=== PATIENT | female | born 1990 | race Caucasian/White ===

== ENCOUNTER → 2017-02-20 | Outpatient (CLI) | payer BC ==
--- NOTE | 2017-02-20 16:34 | DI ---
OBSTETRICAL ULTRASOUND, 02/20/2017 2:40 PM: Clinical History: Amenorrhea. Verify dates. Previous Exam: None at this facility for this . LMP: 12/13/2016. There is a single live IUP currently in unstable position. Amnionic fluid content is normal. The plac enta is indeterminant in location. heart rate is 172 beats/minute and regular. Both ovaries are normal. The yolk sac is visualized. CRL measurement is 24 mm. This measurement corresponds to an EGA value of 9 weeks 1 day. The US EDC is 09/24/2017 EDC by LMP is 09/19/2017. Readin. Single live fetus with unstable presentation and normal amniotic fluid content. 2. The composite EGA is 9 weeks 1 day with an ultrasound EDC of 09/24/2017. Based on LMP of 7, the EDC would be 09/19/2017.
== END ==
LOC: US 14:31
PROVIDERS: ATTEND Family Medicine
DX: Z36 Encounter for antenatal screening of mother (principal); Z3A.09 9 weeks gestation of pregnancy
CPT/HCPCS: 76801

== ENCOUNTER → 2017-02-28 | Outpatient (CLI) | payer BC ==
[2017-02-28 09:34] LABS: BASOPHILS # (AUTO) 0.04 10*3/UL; BASOPHILS % (AUTO) 0.4 % (0-1); EOSINOPHILS # (AUTO) 0.09 10*3/UL; HEMATOCRIT 40.4 % (37.0-47.0); HEMOGLOBIN 14.1 g/dL (12.0-16.0); LYMPHOCYTES # (AUTO) 2.63 10*3/uL; MEAN CORPUSCULAR HEMOGLOBIN 28.4 PG (27-31); MEAN CORPUSCULAR HGB CONC 34.9 g/dL (33-37); MEAN CORPUSCULAR VOLUME 81.5 FL (81-99); MEAN PLATELET VOLUME 9.4 FL (7.4-12.2); MONOCYTES % (AUTO) 5.3 % (5-15); NEUTROPHILS # (AUTO) 6.09 10*3/UL; NEUTROPHILS % (AUTO) 64.8 % (50-80); RED BLOOD COUNT 4.96 10^6/uL (4.20-5.40)
[2017-02-28 09:41] LABS: PLATELET MORPHOLOGY COMMENT NORMAL MORPHOLOGY (NORM); RBC MORPHOLOGY COMMENT NORMAL MORPHOLOGY (NORM); WBC MORPHOLOGY COMMENT NORMAL MORPHOLOGY (NORM)
[2017-02-28 09:50] LABS: HEMOGLOBIN A1C 10.06 % (4.2-6.0)
[2017-02-28 10:02] LABS: CHOL/HDL RATIO 2.81 RATIO (0-4.0); LDL CHOLESTEROL,CALCULATED 106.6 mg/dL
[2017-02-28 10:34] LABS: HIV ANTIBODY NEGATIVE (N); HIV-1 P24 ANTIGEN NEGATIVE (N)
[2017-03-01 16:48] LABS: HEP B SURFACE AG Negative (Negative)
== END ==
LOC: LAB 09:17
PROVIDERS: ATTEND Family Medicine
DX: O24.011 Pre-existing type 1 diabetes mellitus, in pregnancy, first trimester (principal); Z36 Encounter for antenatal screening of mother; Z3A.10 10 weeks gestation of pregnancy
CPT/HCPCS: 36415; 80061; 80081; 83036; 86900; 86901; 87077; 87088; 87186

== ENCOUNTER → 2017-05-21 | Outpatient (CLI) | payer BC ==
[2017-05-21 10:12] LABS: BLOOD UREA NITROGEN 12 mg/dL (7-22); CALCIUM 8.9 mg/dL (8.7-10.7); EST GLOMERULAR FILTRATION > 60 (>60 ml/min/1.73m(2))
== END ==
LOC: LAB 09:42
PROVIDERS: ATTEND Family Medicine
DX: Z36 Encounter for antenatal screening of mother (principal); Z3A.22 22 weeks gestation of pregnancy
CPT/HCPCS: 36415; 80048; 84443

== ENCOUNTER → 2017-05-31 | Outpatient (CLI) | payer BC | LOC: US 15:01 | PROVIDERS: ATTEND Family Medicine | DX: Z53.9 Procedure and treatment not carried out, unspecified reason (principal); O24.019 Pre-existing type 1 diabetes mellitus, in pregnancy, unspecified trimester | CPT/HCPCS: 76815 ==

== ENCOUNTER 2017-09-09 19:04 | Inpatient (IN) ==
[2017-09-09] MEDS ORDERED: Zolpidem Tab 5 MG TAB PO PRN (19:49)
[2017-09-09] MEDS ORDERED: Naloxone Inj 0.01 MG in Normal Saline Flush 1 ML IVP PRN (20:00)
[2017-09-09] MEDS ORDERED: Lidocaine 1% 10 MG/ML - 20 ML VIAL SUBCUT PRN (20:00)
[2017-09-09] MEDS ORDERED: NORMAL SALINE 10 ML SYRINGE FLUSH IVP PRN (20:00)
[2017-09-09] MEDS ORDERED: Phenylephrine Inj 50 MCG in Normal Saline Flush 0.5 ML IVP PRN (20:00)
[2017-09-09] MEDS ORDERED: Carboprost Inj 250 MCG/ML AMP IM PRN (20:00)
[2017-09-09] MEDS ORDERED: BUTORPHANOL TARTRATE 2 MG/1 ML VIAL IVP PRN (20:00)
[2017-09-09] MEDS ORDERED: TERBUTALINE SULFATE 1 MG/1 ML SDV SUBCUT PRN (20:00)
[2017-09-09] MEDS ORDERED: diphenhydrAMINE 50 MG/1 ML VIAL IVP PRN (20:00)
[2017-09-09] MEDS ORDERED: Famotidine Inj 20 MG in Normal Saline Flush 10 ML IVP PRN ×4 (20:00)
[2017-09-09] MEDS ORDERED: Metoclopramide Inj 10 MG/2 ML VIAL IV PRN (20:00)
[2017-09-09] MEDS ORDERED: ONDANSETRON 4 MG/2 ML VIAL IVP PRN (20:00)
[2017-09-09] MEDS ORDERED: Oxytocin 20 Units + LR 20 UNIT/1,000 ML BAG IV SCH (20:00)
[2017-09-09] MEDS ORDERED: fentaNYL Inj 100 MCG/2 ML VIAL IV PRN (20:00)
[2017-09-09] MEDS ORDERED: CITRIC ACID/SODIUM CITRATE 30 ML CUP PO PRN (20:00)
[2017-09-09] MEDS ORDERED: NALOXONE 0.4 MG/1 ML VIAL IVP PRN (20:00)
[2017-09-09] MEDS ORDERED: Nalbuphine Inj 20 MG/ML Ampule IVP PRN (20:00)
[2017-09-09] MEDS ORDERED: MISOPROSTOL 200 MCG TABLET RECTAL PRN (20:00)
[2017-09-09] MEDS ORDERED: METHYLERGONOVINE MALEATE 0.2 MG/1 ML VIAL IM PRN (20:00)
[2017-09-09] MEDS ORDERED: ePHEDrine Inj 5 MG in Normal Saline Flush 1 ML IVP PRN (20:00)
[2017-09-09] MEDS ORDERED: CALCIUM CARBONATE 500 MG (TUMS) CHEWABLE TABLET PO PRN (20:00)
[2017-09-09] MEDS ORDERED: LIDOCAINE HCL 2 % 10 ML JELLY URO-JECT TOPICAL PRN (20:00)
[2017-09-09] MEDS ORDERED: OXYTOCIN 10 UNIT/1 ML IM PRN (20:00)
[2017-09-09] MEDS ORDERED: CefOXitin Inj 2 GM in Sodium Chloride 0.9% 100 ML IV PRN (20:00)
[2017-09-09] MEDS ORDERED: LIDOCAINE W/ SODIUM BICARB 0.5 ML SYR SUBD PRN (20:00)
[2017-09-09] MEDS ORDERED: Lactated Ringers 1,000 ML PRIMARY IV ONE (20:07)
[2017-09-09 20:22] LABS: Hematocrit [HCT] 31.9 % (37.0-47.0); Hemoglobin [HGB] 10.9 g/dL (12.0-16.0); MEAN CORPUSCULAR HEMOGLOBIN 27.2 PG (27-31); MEAN CORPUSCULAR HGB CONC 34.2 g/dL (33-37); MEAN CORPUSCULAR VOLUME 79.6 FL (81-99); MEAN PLATELET VOLUME 11.8 FL (7.4-12.2); RED BLOOD COUNT 4.01 10^6/uL (4.20-5.40)
[2017-09-09] MEDS: Lactated Ringers-OB Dept 1,000 ML PRIMARY IV SCH (20:50)
[2017-09-09] MEDS ORDERED: Misoprostol Tab 100 MCG TAB VAGINAL PRN (21:00)
[2017-09-09] MEDS ORDERED: Insulin Regular Inj 100 UNIT in Sodium Chloride 0.9% 99 ML IV SCH (21:15)
[2017-09-09] MEDS ORDERED: Sodium Chloride 0.9% 100 ML IV ONE (21:26)
[2017-09-09] MEDS: D5-LR 1,000 ML PRIMARY IV SCH (22:15)
[2017-09-09] MEDS: DEXTROSE 50%-WATER SYRINGE 50 ML SYRINGE IVP ONE (23:11)
[2017-09-10] MEDS: DEXTROSE 50%-WATER SYRINGE 50 ML SYRINGE IVP ONE (00:58)
[2017-09-10] MEDS ORDERED: DEXTROSE 31 GM GEL PO PRN ×2 (08:00→19:28)
[2017-09-10] MEDS ORDERED: DEXTROSE 50%-WATER SYRINGE 50 ML SYRINGE IVP PRN ×2 (08:00→19:28)
[2017-09-10] MEDS ORDERED: Glucagon Inj Vial 1 MG/ML VIAL IM PRN ×2 (08:00→19:28)
--- NOTE | 2017-09-10 09:14 | OB.PROGRES ---
Date and Time of Service: 09/10/17 @ 0845 Interval History: Ms. Vegas is a 26 yo G1 at 38 weeks today, who has a 4 year history of type 1 DM. Her A1c with her initial labs was >10. She was referred to [facility], was started on an insulin pump and her sugars have normalized nicely. Her last A1c 1 mo ago was 7. She has been doing testing twice a week since 32 weeks. Her last u/s on 08/31, showed an EFW of 7#. I discussed the pt's case with Dr. Steve Pradhan at [facility] in [place] 2 weeks ago. He thought it was reasonable to not do an amniocentesis in this case since [place] FLM also do not have anything to do with the still-present risk of stillbirth. He thought it reasonable to induce the pt at 38 weeks gestation. The pt presented last noc for cervical ripening and received 1 dose of cytotec. Her cervix was 2/80/-2 this morning at 0500. She started leaking clear fluid at 0600 this morning. She does have some spotting. Her glucoses have been very well controlled on D5LR as well as regular insulin per drip. Her pump and CGM were stopped last noc at 2200. Objective - Cervical Exam Cervical Exam: 5/80/-2 [place]: every 2-3 minutes, palpating hard Heart Rate: 140 baseline, one early deceleration currently on the monitor. Baby has had some periods of decreased variability, but no decels outside of the 1 early. Heart Rate Interpretation Category: Category II - Labs CBC and BMP: 09/09/17 20:21 - Vital Signs Last Taken Vital Signs: Vital Signs - Last Taken Temperature 98 F 09/10/17 05:32 Pulse Rate 53 L 09/10/17 05:32 Respiratory Rate 18 09/10/17 05:32 Blood Pressure 134/71 09/10/17 05:32 Pulse Ox 98 09/10/17 07:00 Assessment and Plan - Patient Problems (1) Type 1 diabetes mellitus affecting in third trimester, antepartum Current Visit: No Status: Acute Code(s): O24.013 - Pre-existing type 1 diabetes mellitus, in , third trimester - Assessment / Plan Additional Assessment/Plan Details: -GBS positive, has received 3 doses of PCN to this point. -pt currently laboring well on her own with the just 1 dose of cytotec. -will get her an epidural when she wishes. -if her labor stalls out, will need to place an IUPC. -expectant management.
[2017-09-10] MEDS: Lactated Ringers-OB Dept 1,000 ML PRIMARY IV SCH ×3 (09:17→15:53)
[2017-09-10] MEDS ORDERED: LIDOCAINE MPF 2% - 5 ML (20 MG/1 ML) ONE ×2 (09:36→16:41)
[2017-09-10] MEDS ORDERED: Fent/Bupiv 2mcg/0.0625% Epid 250 ML ONE (09:36)
[2017-09-10] MEDS ORDERED: NALOXONE 0.4 MG/1 ML VIAL IVP PRN (10:46)
[2017-09-10] MEDS ORDERED: Naloxone Inj 0.01 MG in Normal Saline Flush 1 ML IVP PRN (10:46)
[2017-09-10] MEDS ORDERED: BUTORPHANOL TARTRATE 2 MG/1 ML VIAL IVP PRN (10:46)
[2017-09-10] MEDS ORDERED: Phenylephrine Inj 50 MCG in Normal Saline Flush 0.5 ML IVP PRN (10:46)
[2017-09-10] MEDS ORDERED: diphenhydrAMINE 50 MG/1 ML VIAL IVP PRN (10:46)
[2017-09-10] MEDS ORDERED: ePHEDrine Inj 5 MG in Normal Saline Flush 1 ML IVP PRN (10:46)
[2017-09-10] MEDS ORDERED: fentaNYL 2 MCG/BUPIVACAINE 0.0625%/NS 0.9% 250 ML BAG EPIDURAL ONE (10:46)
[2017-09-10] MEDS ORDERED: Nalbuphine Inj 20 MG/ML Ampule IVP PRN ×2 (10:46→19:19)
--- NOTE | 2017-09-10 10:48 | CRNA.PROGR ---
Anesthesia Time - - Start date: 09/10/17 End date: 09/10/17 - Procedure/Recovery Time Anesthesia : Time In: 10:17 Anesthesia : Time Out: 16:30 Anesthesia : Total Time: 373 - Total Anesthesia Time Total Anesthesia Time (minutes): 373 - Other Weight: 116.573 kg Height: 5 ft 8 in Body Mass Index (BMI): 39.0 Physical Status: P3 (, IDDM, Obesity) Anesthesia Type: Epidural Obstetrics: Planned vaginal delivery w/ neuraxial labor anesthesia/analog
--- NOTE | 2017-09-10 10:57 | CRNA.PROCE ---
Central Neuraxis Block [facility] - - Safety Measures: Site Verified - - Type of Block: Epidural (For Labor, requested by patient. E-Natals reviewed.) Reason for Block: Analgesia Moniters Used During Block: SPO2, NIBP Positioning: Sitting Skin Prep Used: Betadine (Times 3) Draped: Yes Skin Infiltration - Enter Amount Used in Comment Field: 1% Xylocaine (mL): Yes ( 1.5) Spinal Needle Used: 18 Hustead 80 mm (After epidural space located. Dura punctured times 1 with 25 gauge spinal needle through epidural needle intentionally.) Local Anesthetic - Enter Amount Used in Comment Field: 1.5 % Xylocaine with Epinephrine 1:200,000 (mL): Yes (3.5 ml as test dose.) Number of Centimeters Catheter Threaded: 3.5 Bioclusive Dressing Applied: Yes (Skin prep under all adhesive.) - - Additional Details: Diabetic, insulin dependant. On insulin drip for labor. Test dose at 1030. Reports contractions much more comfortable, after 10 min. Says no warm feet, no change in how buttocks feel. Started 1/16% Bupivcaine plus 2 mcgs Fentanyl at 14 ml per hour after 10 ml bolus. Started Bolus at 1043. Anesthesia Time - Other Weight: 116.573 kg Height: 5 ft 8 in Body Mass Index (BMI): 39.0
[2017-09-10] MEDS: D5-LR 1,000 ML PRIMARY IV SCH ×2 (11:07→21:17)
[2017-09-10] MEDS ORDERED: GLYCOPYRROLATE 0.2 MG/1 ML VIAL ONE ×2 (12:16→13:15)
[2017-09-10] MEDS ORDERED: DEXAMETHASONE PF 10 MG/1 ML VIAL ONE (12:16)
[2017-09-10] MEDS ORDERED: Lactated Ringers 1,000 ML PRIMARY IV ONE ×3 (12:33→18:17)
[2017-09-10] MEDS ORDERED: ONDANSETRON 4 MG/2 ML VIAL ONE (12:57)
[2017-09-10] MEDS ORDERED: KETOROLAC 30 MG/1 ML VIAL ONE (12:58)
[2017-09-10] MEDS ORDERED: NEOSTIGMINE 1 MG/1 ML - 10 ML ONE (13:15)
[2017-09-10] MEDS ORDERED: Oxytocin 20 Units + LR 20 UNIT/1,000 ML BAG IV SCH ×2 (13:30→19:19)
--- NOTE | 2017-09-10 13:38 | OB.PROGRES ---
Date and Time of Service: 09/10/17 @ 2475 Interval History: Pt is now very comfortable with her epidural. She had progressed quickly to 5 cm and now her progression has changed. She drank some protein drink this morning and then vomited. No complaints. Objective - Cervical Exam Cervical Exam: 6-7/90/-2 to -3. It does feel like there is over-riding sutures and some caput forming. [place]: IUPC placed; contractions every 4 minutes, palpating mild to moderate Heart Rate: 145 baseline, minimal to moderate variability. No current accels. Occasional early decelerations. Heart Rate Interpretation Category: Category II - Labs CBC and BMP: 09/09/17 20:21 - Vital Signs Last Taken Vital Signs: Vital Signs - Last Taken Temperature 98 F 09/10/17 05:32 Pulse Rate 50 L 09/10/17 10:46 Respiratory Rate 13 09/10/17 10:46 Blood Pressure 123/56 09/10/17 10:46 Pulse Ox 96 09/10/17 10:46 Assessment and Plan - Patient Problems (1) Type 1 diabetes mellitus affecting in third trimester, antepartum Current Visit: No Status: Acute Code(s): O24.013 - Pre-existing type 1 diabetes mellitus, in , third trimester - Assessment / Plan Additional Assessment/Plan Details: -will augment labor with pitocin as needed to hopefully get her contractions more adequate. Current MVU are < 200 by far. Will do this as baby tolerates. Pt and her spouse are aware that the baby's head is very high in the pelvis still, despite SROM, and her labor has stalled out when it should be more active. We discussed the possible need for if she doesn't start to change her cervix and have the head descend. -GBS positive--has received multiple doses of PCN G. -epidural for pain control. -blood sugars are well controlled on insulin drip. Checking sugars q1 hr. -expectant management.
[2017-09-10] MEDS ORDERED: ePHEDrine Inj 50 MG/ML AMP ONE (16:40)
[2017-09-10] MEDS ORDERED: Sodium Chloride 0.9% vial 10 ML ONE ×2 (16:41→16:42)
[2017-09-10] MEDS ORDERED: fentaNYL Inj 100 MCG/2 ML VIAL ONE (16:41)
[2017-09-10] MEDS ORDERED: PHENYLEPHRINE 10,000 MCG/1 ML VIAL ONE (16:42)
[2017-09-10] MEDS ORDERED: BUPivacaine Liposome/PF (Exparel) Inj 20ml vial INFIL ONE (17:48)
[2017-09-10] MEDS ORDERED: Sodium Chloride 0.9% vial 0 ML ONE (17:48)
[2017-09-10] MEDS ORDERED: OXYTOCIN 10 UNIT/1 ML ONE (17:50)
--- NOTE | 2017-09-10 18:31 | CRNA.PROGR ---
Anesthesia Time - - Start date: 09/10/17 End date: 09/10/17 - Procedure/Recovery Time Anesthesia : Time In: 17:01 Anesthesia : Time Out: 18:05 Anesthesia : Total Time: 64 - Total Anesthesia Time Total Anesthesia Time (minutes): 64 - Other Weight: 116.573 kg Height: 5 ft 8 in Body Mass Index (BMI): 39.0 Physical Status: P3 (, Diabetic,obese) Anesthesia Type: Spinal Block Obstetrics: C/S with anesthesia/analog following neuraxial labor
--- NOTE | 2017-09-10 18:36 | CRNA.PROGR ---
Anesthesia Recovery Phase I - Post Anesthesia Evaluation Patient's Condition on Arrival in Phase I: Stable Patient's Condition on Arrival in Phase II: Stable Pain Level: 2 Comments: "high" SAB during procedure. Injected 1.4 ml of 0.75%Bupiv with Dextrose at L4-5. with ease rapidly interfered with Respiratory sysytem. Used peep with mask did not intubate. I assisted only. By end of procedure pt was on room air, no assistance. highly anxious with all things.
--- NOTE | 2017-09-10 18:57 | OB.OP.NOTE ---
Operative Report - - Surgeon: Elizabeth Cardenas MD Assembler Hydraulic Backhoe: Hai Morrison MD Anesthesia Type: Regional Anesthesia Provider: Yun Cochran CRNA Surgery Date: 09/10/17 Preoperative Diagnosis: Cephalopelvic Disproportion; Failure to Descend Postoperative Diagnosis: same, delivered Procedure: Primary low transverse section Complications: pt had a spinal anesthetic that went high; pt did not have to be intubated. Estimated Blood Loss (mL): 700 Urine Output (mL): 200 Fluids: 200 cc LR; 1200 cc LR with pitocin Indications: Pt was induced at 38 weeks secondary to type 1 DM. She proceeded into labor with 1 dose of cytotec. She progressed to 5/90/-3. She slowly changed her cervix to 8 cm over time, however the head did not descend into the pelvis at all despite SROM when she was 5 cm. Augmentation with pitocin was not successful as the baby didn't tolerated it, with late decelerations. Findings: male , cephalic but asynclitic presentation. Description of Procedure: The patient was taken to the operating room where spinal anesthesia was found to be adequate. The pt had what was throught to be a high spinal, possibly combined with anxiety. Anesthesia was making preparations to possibly intubate her when the skin incision was made. She was prepared and draped in the normal sterile fashion in the dorsal supine position with a leftward tilt. A Pfannenstiel skin incision was then made with the scalpel and carried through to the underlying layer of fascia with Bovie. The fascia was incised in the midline and the incision extended laterally with the Bovie. The superior aspect of the fascial incision was then grasped with Kendell clamps, elevated and the underlying rectus muscles dissected off bluntly. Attention was then turned to the inferior aspect of this incision which, in a similar fashion was grasped with Kendell clamps, and the rectus muscles dissected off both bluntly and with the Bovie. The rectus muscle was then in the midline, and the peritoneum identified, tented up, and entered digitally. The peritoneal incision was then extended superiorly and inferiorly with good visualization of the bladder. The Ashish retractor was then inserted and the vesicouterine peritoneum was identified. The lower uterine segment incised in the transverse fashion with the scalpel. The uterine incision was then extended laterally in a blunt fashion. The infant's head was delivered atraumatically. The nose and mouth were suctioned with the bulb suction and the cord clamped and cut. The was handed off to the awaiting nurse. Cord gases and cord blood were sent for analysis. The placenta was then removed manually; the uterus exteriorized, and cleared of all clots and debris. The uterine incision was repaired with 0 Vicryl in a running, locked fashion. A second layer of the same suture was used to obtain excellent hemostasis. The peritoneal cavity was then copiously irrigated with warm saline. The uterus was returned to the abdomen. The paracolic gutters were copiously irrigated with warm saline and a second look at the uterus incision continued to reveal excellent hemostasis. The peritoneum was closed with 3-0 Vicryl. The fascia was reapproximated with 0 PDS in a running fashion. The subcutaneous space was irrigated with copiously with warm saline and the closed first with 3-0 Vicryl Rapide and then more superficially with Insorb absorbable sutures. The skin was reapproximated with Steri-Strips and a Silverlon dressing applied. Fundal massage was completed with no clots in vaginal vault. The patient tolerated the procedure well. Sponge, lap, and needle counts were correct x2. Ancef was given preoperatively less than one hour prior to incision time. The patient was taken to the recovery room in stable condition. Patient Problems - Patient Problem List (1) Type 1 diabetes mellitus affecting in third trimester, antepartum Status: Acute Code(s): O24.013 - Pre-existing type 1 diabetes mellitus, in , third trimester Category: Medical
[2017-09-10] MEDS ORDERED: Famotidine Inj 20 MG in Normal Saline Flush 10 ML IVP PRN (19:19)
[2017-09-10] MEDS ORDERED: ONDANSETRON 4 MG/2 ML VIAL IVP PRN (19:19)
[2017-09-10] MEDS ORDERED: CALCIUM CARBONATE 500 MG (TUMS) CHEWABLE TABLET PO PRN (19:19)
[2017-09-10] MEDS ORDERED: Naloxone Inj 0.01 MG, Sodium Chloride 0.9% vial 1 ML IVP PRN ×2 (19:19)
[2017-09-10] MEDS ORDERED: KETOROLAC 15 MG/1 ML VIAL IVP PRN (19:19)
[2017-09-10] MEDS ORDERED: diphenhydrAMINE 50 MG/1 ML VIAL IV PRN (19:19)
[2017-09-10] MEDS ORDERED: NORMAL SALINE 10 ML SYRINGE FLUSH IVP PRN (19:19)
[2017-09-10] MEDS ORDERED: diphenhydrAMINE 25 MG CAPSULE PO PRN (19:19)
[2017-09-10] MEDS ORDERED: LANOLIN HPA 40 GM TUBE TOPICAL PRN (19:19)
[2017-09-10] MEDS ORDERED: DIPH,PERTUSS,TET(ADACEL) VAC/PF 0.5 ML (Tdap) IM ONE (19:19)
[2017-09-10] MEDS ORDERED: Insulin Regular Inj 100 UNIT in Sodium Chloride 0.9% 99 ML IV SCH (19:30)
[2017-09-11 05:02] LABS: Hematocrit [HCT] 30.1 % (37.0-47.0); Hemoglobin [HGB] 9.9 g/dL (12.0-16.0); MEAN CORPUSCULAR HEMOGLOBIN 26.5 PG (27-31); MEAN CORPUSCULAR HGB CONC 32.9 g/dL (33-37); MEAN CORPUSCULAR VOLUME 80.5 FL (81-99); MEAN PLATELET VOLUME 11.5 FL (7.4-12.2); RED BLOOD COUNT 3.74 10^6/uL (4.20-5.40)
[2017-09-11 05:11] LABS: BLOOD UREA NITROGEN 10 mg/dL (7-22); BUN/CREATININE RATIO 14.28 (6-20); SERUM ALBUMIN 2.5 g/dL (3.5-4.8); Uric Acid 4.3 mg/dl (2.5-6.2)
[2017-09-11] MEDS: oxyCODONE-ACETAMINOPHEN 5-325 TAB PO PRN ×2 (06:21→16:41)
[2017-09-11] MEDS: IBUPROFEN 800 MG TABLET PO PRN ×3 (06:23→22:05)
[2017-09-11] MEDS: D5-LR 1,000 ML PRIMARY IV SCH ×2 (07:24→09:23)
[2017-09-11] MEDS: Prenatal Multivitamin Tab 1 TAB TAB PO SCH (09:21)
[2017-09-11] MEDS: Senna/Docusate Tab 1 TAB TAB PO SCH ×2 (09:22→21:11)
[2017-09-11] MEDS: HEPARIN 5000 UNIT/1 ML SUBCUT SCH (18:02)
--- NOTE | 2017-09-11 18:26 | CRNA.PROGR ---
Anesthesia Note - Progress Notes Anesthesia Progress Note: Has been up and around. Eating, drinking. Denies Headache and/or backache. No apparent anesthetic difficulties. Laboratory Results 09/11/17 09/11/17 Range/Units 04:55 04:55 WBC 17.45 H (4.8-10.8) 10^3/uL RBC 3.74 L (4.20-5.40) 10^6/uL Hgb 9.9 L (12.0-16.0) g/dL Hct 30.1 L (37.0-47.0) % MCV 80.5 L (81-99) FL MCH 26.5 L (27-31) PG MCHC 32.9 L (33-37) g/dL RDW Std Deviation 40.8 (39-50) fL RDW Coeff of Antoine 14.6 H (11.5-14.5) % Plt Count 224 (140-350) 10*3/uL MPV 11.5 (7.4-12.2) FL Sodium 138 (135-145) meq/L Potassium 3.9 (3.8-5.2) meq/L Chloride 108 (98-112) meq/L Carbon Dioxide 22 L (23-33) meq/L Anion Gap 8 (5-20) BUN 10 (7-22) mg/dL Creatinine 0.7 (0.50-1.20) mg/dL Estimated GFR > 60 (>60 ml/min/1.73m(2)) BUN/Creatinine Ratio 14.28 (6-20) Glucose 94 (78-110) mg/dL Calculated Osmolality 284.0 (267-292) mOsm/kg Uric Acid 4.3 (2.5-6.2) mg/dl Calcium 8.5 L (8.7-10.7) mg/dL Total Bilirubin 0.7 (0.3-1.2) mg/dL AST 23 (8-39) IU/L ALT 32 (9-52) IU/L Alkaline Phosphatase 117 (38-126) IU/L Lactate Dehydrogenase 425 (313-618) IU/L Total Protein 5.4 L (6.1-8.0) g/dL Albumin 2.5 L (3.5-4.8) g/dL Globulin 2.9 (2.50-4.10) g/dL Albumin/Globulin Ratio 0.80 L (1.3-2.0) mg/g Vital Signs - Last Taken Temperature 97.6 F 09/11/17 17:49 Pulse Rate 77 09/11/17 17:49 Respiratory Rate 16 09/11/17 17:49 Blood Pressure 138/74 09/11/17 17:49 Pulse Ox 100 09/11/17 17:49
[2017-09-11] MEDS ORDERED: IBUPROFEN 800 MG TABLET PO PRN (18:32)
[2017-09-11] MEDS: oxyCODONE IR Tab 5 MG TAB PO PRN (21:12)
[2017-09-11 22:10] VITALS: RESP 18
[2017-09-12] MEDS: HEPARIN 5000 UNIT/1 ML SUBCUT SCH ×2 (01:00→08:45)
[2017-09-12] MEDS: oxyCODONE IR Tab 5 MG TAB PO PRN (01:30)
[2017-09-12] MEDS: FERROUS GLUCONATE 324 MG TABLET PO SCH ×2 (01:38→08:45)
[2017-09-12] MEDS: IBUPROFEN 800 MG TABLET PO PRN ×2 (04:04→14:05)
[2017-09-12] MEDS: D5-LR 1,000 ML PRIMARY IV SCH ×4 (07:47→07:48)
[2017-09-12] MEDS: Senna/Docusate Tab 1 TAB TAB PO SCH (08:45)
[2017-09-12] MEDS: Prenatal Multivitamin Tab 1 TAB TAB PO SCH (08:45)
[2017-09-12 15:10] VITALS: BP 123/75; TEMP 98; O2SAT 98
--- NOTE | 2017-09-21 12:44 | OB.PROGRES ---
Subjective Post Op Day: 1 Pain Management: PO Romeo Catheter: Yes Flatus: Yes Diet: Regular Feeding Method: Formula Feeding Concerns / Additional Information: Blood sugars have remained under excellent control overnoc immediately post-op. She remains on an insulin drip. Her epidural was left in most of the noc, but shut off around 0500 this morning. She has dangled, but not yet up and out of bed. Hasn't really had anything to eat yet. Objective - General General Appearance: POSITIVE: No Acute Distress, Cooperative - Cardiovacular Cardiovascular Exam: POSITIVE: RRR, No Murmur, No Clicks, No Gallops, No Rubs Edema: +1 Pedal Edema Extremities: Negative Candi's - Bilaterally - Respiratory Respiratory Exam: POSITIVE: Clear to Auscultation - Bilaterally, Breathing Non Labored - Abdomen Bowel Sounds: Hypoactive Abdominal Wound Assessment: Silverlone Dressing Assesstment / Plan (1) Type 1 diabetes mellitus affecting in third trimester, antepartum Status: Acute (2) Status post primary low transverse section Status: Acute Assessment / Plan: -continue routine post-op cares. Will continue insulin drip for now as she hasn' t been eating much. She is more hungry this morning, so will advance diet. Plan to transition to her CGM and insulin pump this afternoon under the direction of the certified community nutrition educator. -d/c romeo this morning, up and ambulating at least in her room. Since there is a conflict with tylenol and her CGM, will just prescribe oxycodone for pain control. -start iron for mild post-operative anemia. -mostly bottle feeding for now, may breast feed once her milk comes in. -rh positive. -rubella immune. -d/c home in 1-2 more days.
--- NOTE | 2017-09-21 12:52 | DCSUMMARY ---
Hospitalization Summary Admit Date: 09/09/17 Discharge Date: 09/12/17 Primary Diagnosis:: Induction at term Secondary Diagnosis:: Type 1 diabetes mellitus GBS positive Primary Surgery and Date: Primary section on 09/10/17 for failure to descend secondary to cephalopelvic disproportion Delivery Type: Hospital Course: Pt was admitted for induction of labor at 38 week secondary to her well controlled type 1 DM. She received 1 dose of cytotec and fairly expediently to 5 cm. She had SROM with clear fluid at 0600. Her labor slowed dramatically in active labor. An IUPC was placed and pitocin augmentation was initiated. The baby did not tolerate the pitocin well, with late decelerations. Her cervix had remained at 8 cm for greater than 2 hours with no descend of the baby's head. She was counseled about her options and requested a primary section. For details of the operation, please see operative report elsewhere in the chart. / Postop Complications: The pt was maintained on an insulin drip x 20 hours after delivery and then transitioned to her CGM and insulin pump at her initial settings. Her sugars remained under 200 for the most part. Her pain was well controlled on plain oxycodone. She was up and around, able to complete her ADLs without assistance and also having no problems taking care of her baby and requested discharge on POD #2. [place] Complications: Baby required resuscitation directly after , thought to be related to a mucus plug. After the resuscitation, he was started on D10W for hypoglycemia. He was maintained on this for 24 hours and then it was titrated off. On the day of discharge, he was eating well, having normal voids and stools and there were no concerns related to his blood sugars or respiratory status. Exam - Vitals Vital Signs: Vital Signs Temperature 98.0 F Temperature Source Oral Pulse Rate [Apical] 74 Pulse Rate [Bilateral Radial] 76 Pulse Rate [Pulse Oximeter] 86 Pulse Rate 74 Respiratory Rate 18 Blood Pressure [Right Arm] 123/75 Blood Pressure 128/81 Pulse Ox 98 Oxygen Flow Rate RA Oxygen Flow Rate [1 of 1] 10 Oxygen Delivery Method Room Air Height 5 ft 8 in Weight 256 lb 15.991 oz - General General Appearance: No Acute Distress, Cooperative - Head Head Exam: Normal Inspection - Neck Neck Exam: Normal Inspection - Respiratory Respiratory Exam: POSITIVE: Clear to Auscultation - Bilaterally, Breathing Non Labored - Cardiovascular Cardiovascular Exam: POSITIVE: RRR, No Murmur - GI/Abdominal GI/Abdominal Exam: POSITIVE: Non Tender, Non Distended, Soft, Hypoactive Bowel Sounds - Extremities Extremities Exam: POSITIVE: Negative Candi's sign, +1 Edema - Back Back Exam: POSITIVE: Normal Inspection - Neurological Neurological Exam: POSITIVE: Alert, Oriented x 3 - Psychiatric Psychiatric Exam: POSITIVE: Normal Affect - Integumentary Integumentary Exam: POSITIVE: Normal Color, Warm, Dry Patient Problems - Patient Problem List (1) Type 1 diabetes mellitus affecting in third trimester, antepartum Status: Acute Code(s): O24.013 - Pre-existing type 1 diabetes mellitus, in , third trimester Category: Medical (2) Status post primary low transverse section Status: Acute Code(s): Z98.891 - History of uterine scar from previous surgery Category: Medical
== END 2017-09-12 16:02 | disposition home or self-care (01) | DRG 765 ==
LOC: OBIP 19:04
PROVIDERS: ADMIT Family Medicine; ATTEND Family Medicine